=== PATIENT | male | born 1950 | race Caucasian/White ===

== ENCOUNTER → 2024-12-08 12:55 | Outpatient (REF) | payer OTHER, SELFPAY | LOC: HWRCS 12:55 | PROVIDERS: ATTENDING PHYSICIAN Internal Medicine Cardiovascular Disease; FAMILY PHYSICIAN Internal Medicine | DX: I48.20 Chronic atrial fibrillation, unspecified (principal) | CPT/HCPCS: 93306 ==

== ENCOUNTER 2025-03-02 15:49 | Emergency (ER) | payer OTHER, SELFPAY ==
[2025-03-02 15:52] VITALS: BP 129/84
--- NOTE | 2025-03-02 18:50 | ED.MUSCINJ ---
HPI-Injury
General
Chief Complaint: Fall
Source: patient and family (Sister at bedside)
Exam Limitations: dementia
Time Seen by Provider: 03/02/25 18:02
Nursing documentation reviewed up to this point in time: agreed with
History of Present Illness-Injury
Initial Injury comments:
74-year-old male with history provided by sister of Sai on Eliquis, no longer on Coumadin or ASA, HTN, HLD, AL, Hypothyroid, pacemaker sister states pt has dementia, lives alone with his dog, she is close by and keeps in close contact. She state
pt fell 11 days ago by his kitchen door as he was lugging a recycle trash can behind him through the living room and it must've gotten stuck on the door frame. She was upstairs, heard him fall, yelled 'don't move' and found him face down on
the floor with trash can on his back. She checked him over, no significant pain, he got up and was moving as usual, with no significant injury.
Fell again the next day but didn't tell her until today.
Called her this morning saying He then told her he fell 10 days ago, the day after the initial fall on his front concrete steps, fell down 3 steps, hit the right knee on the cement step. He was able to get himself up, has been doing his ADL's
He didn't tell her he fell until today when he called her he is going to have to have his right foot cut off because it is old swollen and discolored.
Pt has been complaining of headaches to her. He states he does have neck pain since the fall. He denies CP, SOB, abd pain or back pain.
He has pain in right knee and ankle.
Saw STYLE ADVISOR Daysi Burris today at [facility] who sent pt here for US due to the swelling.
Meds:
Vitamin D
Benazepril 10 mg at bedtime
Eliquis 5 mg twice daily
Levothyroxine 50 mcg daily
Metoprolol succinate XL 50 mg daily
Simvastatin 10 mg daily
Past History
Past History
ED Past Medical History: Arrthythmia (Atrial fibrillation), HTN, Hypercholesterolemia and Other (Dementia)
ED Past Surgical History: Cardiac (Pacemaker)
Social History
Tobacco: Non-smoker
Alcohol: None
Drug: None
Personal: Single
Living: alone
Review of Systems
Review of Systems
Allergies reviewed?: Yes
Other source history: family
All Other Systems: ROS reviewed and negative except as documented in HPI and ROS
Constitutional: Denies fever or fatigue
Respiratory: Denies trouble breathing
Cardiac: Denies chest pain, palpitations or syncope
ABD/GI: Denies abdominal pain, nausea, vomiting or diarrhea
: Denies dysuria, incontinence or difficulty voiding
Musculoskeletal: Reports neck pain and other (pain right knee, ankle and foot); Denies back pain
Skin: Reports other (ecchymosis medial right knee, right foot )
Neurological: Reports headache (sister states he's been complaining of headache off and on); Denies dizzy, weakness or numbness
Hematologic/Lymphatic: Reports bruising (RLE after trauma on Eliquis)
Phy Exam
Physical Exam
Physical Exam:
GENERAL: No acute distress. A&Ox3.
CONSTITUTIONAL: Afebrile.
EYES: clear, conjunctivae normal
ENMT: moist mucus membranes, Pharynx nl
RESPIRATORY: Regular respirations, nonlabored, lungs clear.
CARDIOVASCULAR: Regular rate and rhythm, no murmurs, no rubs.
GI: Soft, nontender, normal BS
MUSCULOSKELETAL: Neck tender bilateral para cervical ST, no spinal bony tenderness. Back nontender. Tender right knee with mild suprapatellar swelling and erythema. Flexes knee to 45 degrees easily. Tender R ankle laterally, tender right foot
laterally. Moves all toes well. Moves with ease. Well perfused.
SKIN: Warm, dry, pink. Psoriatic patch anterior right knee. Purplish ecchymosis medial right knee scattered down leg and along instep of foot. 3 toes with ecchymosis, mild swelling and ecchymosis latera right foot. RLE mildly swollen compared to
left , no compartment syndrome. Pedal and P/T pulses 2/4. Toes warm with brisk capillare refill
PSYCH: Normal mood and affect. Well kept, interactive and appropriate
NEUROLOGIC: Awake, alert and oriented. Forgetful, speech clear. CN 2-12 intact. No focal neurological deficits
Injury Course
Orders/Labs/Results
Orders:
Orders
03/02/25 15:58
US Legs, Right [US Periph Venous LOWER Ext RT] Urgent
Comment:
Reason For Exam: pain
03/02/25 18:48
Ankle, Right 3 view CR [CR Ankle - Right Min 3 Views *] Urgent
Comment:
Reason For Exam: pain after fall
Foot, Right 3 View [CR Foot - Right Min 3 Views] Urgent
Comment:
Reason For Exam: pain after fall
Knee, Right 4 or More Views [CR Knee- Right 4 Or More View*] Urgent
Comment:
Reason For Exam: pain after fall
03/02/25 19:04
CT Head W/o Iv Contrast Urgent
Comment:
Reason For Exam: fall head strike, on Eliquis
03/02/25 19:06
CT Cervical Spine W/o Iv Contr Urgent
Comment:
Reason For Exam: dementia, neck pain after fall
03/02/25 20:00
Acetaminophen [Tylenol] 1,000 mg .ROUTE .STK-MED ONE
Acetaminophen [Tylenol] 1,000 mg PO NOW STA
03/02/25 20:06
Reyes Wrap Right-Treatment ONCE
MDM/Problems Addressed
Differential Diagnosis Includes:
Fx knee, ankle, foot
Knee bursitis, torn meniscus
Compartment syndrome
MDM/Problems Addressed:
74-year-old male with history provided by sister of Sai on Bernadine, no longer on Coumadin or ASA, HTN, HLD, AL, Hypothyroid, pacemaker sister states pt has dementia, lives alone with his dog, she is close by and keeps in close contact. She state
pt fell 11 days ago by his kitchen door as he was lugging a recycle trash can behind him through the living room and it must've gotten stuck on the door frame. She was upstairs, heard him fall, yelled 'don't move' and found him face down on
the floor with trash can on his back. She checked him over, no significant pain, he got up and was moving as usual, with no significant injury.
Fell again the next day but didn't tell her until today. She thinks he falls and doesn't tell anyone.
Called her this morning saying He then told her he fell 10 days ago, the day after the initial fall on his front concrete steps, fell down 3 steps, hit the right knee on the cement step. He was able to get himself up, has been doing his ADL's
He didn't tell her he fell until today when he called her he is going to have to have his right foot cut off because it is old swollen and discolored.
Pt has been complaining of headaches to her. He states he does have neck pain since the fall. He denies CP, SOB, abd pain or back pain.
He has pain in right knee and ankle.
Saw ARCELIA Burris today at [facility] who sent pt here for US due to the swelling.
No evidence of compartment syndrome
US neg for DVT
8:00 PM:
Radiology report reviewed for all of the following:
Head CT: No acute finding
Cervical spine CT: No acute fracture
Right knee x-ray: IMPRESSION:
No acute fracture or dislocation. Mild tricompartmental osteophytosis. Prominent calcified loose bodies within the posterior joint compartment. Trace suprapatellar joint effusion. Moderate prepatellar bursitis.
Right foot x-ray: No acute fracture
Right ankle x-ray: No fracture.
Reyes wrap applied, sister states he probably would not be compliant with knee immobilizer.
F/U with ortho
*Critical Care Note
Total Time (30-74mins, 75-104mins- exclusive of procedures): Not Applicable
ED Attending Note
-
Portions of this chart may have been created with voice recognition software.� Occasional wrong word or��sound alike� substitutions may have occurred due to the inherent limitations of voice recognition software.
Discharge Plan
Departure
Patient Disposition: Home (Routine Discharge)
Date of Disposition: 03/02/25
Time of Disposition: 20:07
Patient with high blood pressure during this ER visit?: No
Condition: Good
Discharge Problem:
Fall from slip, trip, or stumble, Prepatellar bursitis of right knee, Contusion of right knee, Sprain of right ankle, Head injury, closed, without LOC
Instructions: Contusion (DC), Bursitis ED, Ankle sprain - ED discharge instructions, Knee pain - ED discharge instructions
Prescriptions:
No Action
multivitamin [Daily Multiple] 1 EACH tablet
1 ea PO DAILY
metoprolol succinate 50 MG tablet extended release 24 hr
50 mg PO BID
warfarin [Jantoven] 7.5 MG tablet
7.5 mg PO .4X/WK
aspirin 81 MG tablet,delayed release (DR/EC)
81 mg PO DAILY
levothyroxine 25 MCG tablet
25 mcg PO DAILY
digoxin 0.125 MG tablet
0.125 mg PO DAILY
cinnamon bark 500 MG capsule
1,000 mg PO DAILY
warfarin [Jantoven] 5 MG tablet
5 mg PO .3XWK
aspirin 81 MG tablet,chewable
81 mg PO DAILY
coenzyme Q10 100 MG capsule
100 mg PO BID
fish oil-dha-epa 1 EACH capsule
1 ea PO BID
cholecalciferol (vitamin D3) 2,000 UNIT tablet
2,000 unit PO DAILY
methylprednisolone [Medrol (Barry)] 4 MG tablets,dose pack
4 tab PO . DIRECT Qty: 1 0RF
lidocaine 1 PATCH adhesive patch,medicated
1 patch topical DAILY Qty: 1 0RF
Rx Instructions:
ON FOR 12 HOURS, OFF FOR 12 HOURS
Referrals:
Gelacio Cornejo MD [Family Provider] -
Philip Samuel MD [Active] - Call in 1-3 days for appt
Activity Restrictions/Additional Instructions:
As we discussed, Tylenol 1000 mg up to 3 times a day as needed for pain.
Wear the Reyes wrap's as needed for support and swelling.
Call Dr. Samuel's office on Wednesday and make appointment for sometime in the next week or 2 to recheck the knee and ankle.
Return here immediately if swelling of the leg gets worse, you develop with fever or worsening pain in the leg
Interventions
Interventions:
*Risk Screen - Suicide Last Done: 03/02/25 15:52
*General Assessment Last Done: 03/02/25 15:52
*Neglect/Abuse Screening Last Done: 03/02/25 15:52
*ED COVID-19 Vaccine History Last Done: 03/02/25 15:52
ED-Musculoskeletal Assessment Last Done: 03/02/25 19:51
ED- Neurological Assessment Last Done: 03/02/25 19:51
ED-Skin Assessment Last Done: 03/02/25 19:51
Discharge Date and Time
Print Language: CITIZEN [place]
[2025-03-02 19:51] VITALS: BP 130/70; BMI 29.0
[2025-03-02] MEDS: TYLENOL 1000 MG PO (20:02)
== END 2025-03-02 20:48 | disposition home or self-care (01) ==
LOC: EMR 15:49
PROVIDERS: EMERGENCY PHYSICIAN Emergency Medicine; FAMILY PHYSICIAN Internal Medicine
DX: S80.01XA Contusion of right knee, initial encounter (principal); S83.91XA Sprain of unspecified site of right knee, initial encounter; S90.01XA Contusion of right ankle, initial encounter; S09.90XA Unspecified injury of head, initial encounter; S93.401A Sprain of unspecified ligament of right ankle, initial encounter; W10.9XXA Fall (on) (from) unspecified stairs and steps, initial encounter; E78.00 Pure hypercholesterolemia, unspecified; I10 Essential (primary) hypertension; F03.90 Unspecified dementia, unspecified severity, without behavioral disturbance, psychotic disturbance, mood disturbance, and anxiety; I25.2 Old myocardial infarction; I48.91 Unspecified atrial fibrillation; E03.9 Hypothyroidism, unspecified; M70.41 Prepatellar bursitis, right knee; Z79.01 Long term (current) use of anticoagulants; Z79.890 Hormone replacement therapy; Z79.899 Other long term (current) drug therapy; Z95.0 Presence of cardiac pacemaker
CPT/HCPCS: 99284; 70450; 72125; 73564; 73610; 73630; 93971

== ENCOUNTER → 2025-04-19 08:55 | Outpatient (REF) | payer OTHER, SELFPAY | LOC: RAD 08:55 | PROVIDERS: ATTENDING PHYSICIAN Podiatrist; FAMILY PHYSICIAN Internal Medicine; REFERRING PHYSICIAN Internal Medicine Cardiovascular Disease | DX: I73.9 Peripheral vascular disease, unspecified (principal) | CPT/HCPCS: 93922 ==